=== PATIENT | male | born 1955 | race Caucasian/White ===

== ENCOUNTER 2023-04-10 06:46 | Day surgery (SDC) | payer MEDICARE, SELFPAY ==
[2023-03-31 13:21] VITALS: BMI 21.6
[2023-04-10] VITALS (15 sets, daily range): BP systolic 125–154; BP diastolic 78–94; BMI 21.6
[2023-04-10] MEDS: NORMOSOL-R 1000 IV (09:45)
[2023-04-10] MEDS: DILAUDID 0.5 MG IV ×3 (13:07→13:33)
[2023-04-10] MEDS: MORPHINE SULFATE 2 MG IV ×2 (13:58→14:15)
--- NOTE | 2023-04-10 14:07 | PTCARENOTE ---
Patient continues with pain to elbow 12/13 post 1.5 Dilaudid. He had stated his shoulder was tolerable now calling it a 11/13. Dr. Montague made aware since his respiratory status had become shallow and I did not feel comfortable given him more
Dilaudid. Dr. Montague ordered Morphine. Report given to on-coming nurse
== END 2023-04-10 16:04 | disposition home or self-care (01) ==
LOC: SDS 06:46
PROVIDERS: ATTENDING PHYSICIAN Orthopaedic Surgery Hand Surgery; FAMILY PHYSICIAN Family Medicine
DX: S43.432A Superior glenoid labrum lesion of left shoulder, initial encounter (principal); X58.XXXA Exposure to other specified factors, initial encounter; M77.02 Medial epicondylitis, left elbow; M25.812 Other specified joint disorders, left shoulder; M75.42 Impingement syndrome of left shoulder; M75.52 Bursitis of left shoulder
CPT/HCPCS: 29807; 24359; 88304; 36415; 93005

== ENCOUNTER 2023-04-17 20:17 | Inpatient (IN) | payer MEDICARE, SELFPAY ==
[2023-04-17 14:30] VITALS: BP 145/103
--- NOTE | 2023-04-17 15:00 | ED.GENMED ---
History of Present Illness
<Phyllis Negro PA-C - Last Filed: 04/17/23 18:45>
General
Chief Complaint: Abdominal Symptoms
Source: patient
Exam Limitations: none
Time Seen by Provider: 04/17/23 14:34
Nursing documentation reviewed up to this point in time: agreed with
Travel History
Have you had any contact with someone who has COVID-19?: No
Do you have any symptoms of coronavirus? Fever > 100 degrees, chills, cough, shortness of breath, sore throat, loss of taste or smell, muscle aches, or headache?: No
History of Present Illness
History of Present Illness:
Patient is a 67 year old male with hx PCKD, HTN, HLD, diverticulitis, pancreatitis, hepatitis C presenting for evaluation of severe abdominal pain. Symptoms started this morning and he reports a severe pain diffusely located throughout the abdomen
that is constant. Also endorsing chills and one episode of vomiting. Patient denies fever, chest pain, shortness of breath, diarrhea, constipation, or urinary symptoms. Patient states he has been having regular bowel movements. He is concerned this
is a flare of his diverticulitis.
Patient is a difficult historian and somewhat agitated upon initial interview.
Patient did have an orthopedic surgery on 04/10/[address] Yarbrough- repair of L medical epicondylitis and a wash out of L shoulder. He states incisions are healing. He has been taking Percocet at home as needed.
Patient has a history of diverticulitis and underwent a sigmoid colon resection back in 2008.
Patient states that he does not drink alcohol.
Past History
<Phyllis Negro PA-C - Last Filed: 04/17/23 18:45>
Past History
ED Past Medical History: HTN, Hypercholesterolemia and Other (Hep C, Polycystic kidney and Liver ds, chronic back pain, Diverticulitis, PUD, )
ED Past Surgical History: Bowel resection (for diverticulitis), Orthopedic and Other (Left herniorrhaphy and right)
Social History
Tobacco: Smoker
Alcohol: Occasional
Drug: None
Personal: Single
Living: alone
Employment: Disabled (Due to back problems)
Family History
Family History: Negative Early CAD
Phy Exam
<Phyllis Negro PA-C - Last Filed: 04/17/23 18:45>
Physical Exam
Physical Exam:
General: In moderate distress, and non-toxic
Vitals: Hypertensive, otherwise vital signs stable- afebrile
HEENT: Atraumatic, normocephalic; protecting airway
Neck: appears supple
CV: Regular rate and rhythm, no evidence of cyanosis
Resp: No evidence of respiratory distress
Abd: Diffuse moderate tenderness with guarding; no palpable masses
Extremities: No deformities, no evidence of cyanosis or edema
Neuro: alert and oriented, speech normal, no focal neurologic deficits
Psych: Somewhat agitated
Skin: Intact, no rashes; surgical sites on left elbow and left shoulder are clean, dry, intact without any redness, streaking or signs of infection
Course
<Phyllis Negro PA-C - Last Filed: 04/17/23 18:45>
Orders/Labs/Results
Orders:
Orders
04/17/23 15:35
0.9% Sodium Chloride 1000 ml [Nss] 1,000 ml IV BOLUS
Iohexol [Omnipaque] See Protocol PO NOW STA
Morphine Sulfate 2 mg IV NOW STA
Ondansetron Injectable [Zofran] 4 mg IV NOW STA
04/17/23 16:05
CBC/With Diff [Complete Blood Count/With Diff] Urgent
Comprehensive Metabolic Panel Urgent
Lipase Urgent
04/17/23 16:59
CT Abd/pel Without Iv Or Oral Urgent
Comment: renal insufficiency
Reason For Exam: diffuse abdominal pain
04/17/23 17:09
Morphine Sulfate 4 mg IV NOW STA
04/17/23 18:37
Piperacillin/Tazo 2.25 Gram [Zosyn] 2.25 grams in 50 ml IV NOW
Abnormal Lab Results
04/17/23
16:05
WBC 24.6 H 10^3/uL
(4.8-10.8)
RDW 15.4 H %
(11.5-14.5)
Abs Immat Gran (auto) 0.1 H 10^3/uL
(0-0.05)
Absolute Neuts (auto) 21.5 H 10^3/uL
(1.4-6.5)
Absolute Lymphs (auto) 1.0 L 10^3/uL
(1.2-3.4)
Absolute Monos (auto) 1.8 H 10^3/uL
(0.1-0.6)
Neutrophils % 87.8 H %
(42.2-75.2)
Lymphocytes % 4.1 L %
(20.5-51.1)
Carbon Dioxide 20 L mmol/L
(22-30)
BUN 41 H mg/dl
(9-20)
Creatinine 3.1 H mg/dL
(0.7-1.3)
Glucose 137 H mg/dl
(70-99)
04/17/23 16:05
04/17/23 16:05
Vital Signs
Initial and Last Documented VS:
Initial Vital Signs
Temp Pulse Resp BP Pulse Ox
98.6 F 96 16 145/103 98
04/17/23 14:30 04/17/23 14:30 04/17/23 14:30 04/17/23 14:30 04/17/23 14:30
Last Documented Vital Signs
Temp Pulse Resp BP Pulse Ox
98.6 F 84 16 145/103 97
04/17/23 14:30 04/17/23 17:23 04/17/23 14:30 04/17/23 14:30 04/17/23 17:22
<Bakari Danielle, DO - Last Filed: 04/17/23 19:37>
Orders/Labs/Results
Orders:
Orders
04/17/23 15:35
0.9% Sodium Chloride 1000 ml [Nss] 1,000 ml IV BOLUS
Iohexol [Omnipaque] See Protocol PO NOW STA
Morphine Sulfate 2 mg IV NOW STA
Ondansetron Injectable [Zofran] 4 mg IV NOW STA
04/17/23 16:05
CBC/With Diff [Complete Blood Count/With Diff] Urgent
Comprehensive Metabolic Panel Urgent
Lipase Urgent
04/17/23 16:59
CT Abd/pel Without Iv Or Oral Urgent
Comment: renal insufficiency
Reason For Exam: diffuse abdominal pain
04/17/23 17:09
Morphine Sulfate 4 mg IV NOW STA
04/17/23 18:37
Piperacillin/Tazo 2.25 Gram [Zosyn] 2.25 grams in 50 ml IV NOW
Abnormal Lab Results
04/17/23
16:05
WBC 24.6 H 10^3/uL
(4.8-10.8)
RDW 15.4 H %
(11.5-14.5)
Abs Immat Gran (auto) 0.1 H 10^3/uL
(0-0.05)
Absolute Neuts (auto) 21.5 H 10^3/uL
(1.4-6.5)
Absolute Lymphs (auto) 1.0 L 10^3/uL
(1.2-3.4)
Absolute Monos (auto) 1.8 H 10^3/uL
(0.1-0.6)
Neutrophils % 87.8 H %
(42.2-75.2)
Lymphocytes % 4.1 L %
(20.5-51.1)
Carbon Dioxide 20 L mmol/L
(22-30)
BUN 41 H mg/dl
(9-20)
Creatinine 3.1 H mg/dL
(0.7-1.3)
Glucose 137 H mg/dl
(70-99)
04/17/23 16:05
04/17/23 16:05
Vital Signs
Initial and Last Documented VS:
Initial Vital Signs
Temp Pulse Resp BP Pulse Ox
98.6 F 96 16 145/103 98
04/17/23 14:30 04/17/23 14:30 04/17/23 14:30 04/17/23 14:30 04/17/23 14:30
Last Documented Vital Signs
Temp Pulse Resp BP Pulse Ox
98.6 F 84 16 145/103 97
04/17/23 14:30 04/17/23 17:23 04/17/23 14:30 04/17/23 14:30 04/17/23 17:22
<Phyllis Negro PA-C - Last Filed: 04/17/23 18:45>
MDM/Problems Addressed
Differential Diagnosis Includes:
Diverticulitis, pancreatitis, bowel perforation, appendicitis, cholecystitis, colitis
MDM/Problems Addressed:
Patient is a 67-year-old male with history of diverticulitis, PCKD presenting for evaluation of severe abdominal pain starting this morning. Pain is located diffusely throughout the abdomen, with 1 associated episode of vomiting. He denies
diarrhea, constipation, nausea, urinary symptoms, fever. He recently had a surgical procedure done on left elbow and left arm about 1 week ago�he has had no complications and is taking Percocet as needed for pain. Patient denies alcohol use. He
does have a history of diverticulitis and had a sigmoid colon resection in 2008. Physical exam as document above. His vital signs are stable upon arrival, afebrile. He is somewhat agitated and in significant discomfort. He has moderate diffuse
abdominal tenderness with some guarding. His surgical sites are clean, dry, intact without any red streaking or signs of infection.
Given significant level of discomfort and history of diverticulitis�will get basic labs, lipase. Will check CT of abdomen. Will give IV morphine, Zofran, start IV fluids. Was planning to start IV Dilaudid�but patient states that 'he does not react
well'.
CBC with significant leukocytosis of 24.6, neutrophil predominant. No other clinically significant abnormalities. CMP shows significant renal insufficiency which appears to be about baseline per patient. Otherwise no clinically significant
abnormalities. Lipase normal. Given renal insufficiency will avoid IV contrast and CT. Will get CT without IV or oral contrast to expedite scan based on significant elevated WBC.
CT scan shows no acute findings or evidence of perforation�possible 3 mm stone at right UVJ. This is not consistent with location of patient's pain and do not suspect this is cause of symptoms.
Given ongoing pain, significant leukocytosis�will admit patient for IV antibiotics and monitoring. Starting Zosyn.
Chronic conditions affecting care:
PCKD, hypertension, hyperlipidemia, diverticulitis, hepatitis C, pancreatitis
<Phyllis Negro PA-C - Last Filed: 04/17/23 18:45>
*Radiology
Radiology exam reviewed: preliminary read by ED provider and radiology read reviewed
*Pulse Oximetry
Patient hypoxic: no
*Mortgage Loan Computation Clerk Interpretation
Rate: Mortgage Loan Computation Clerk- N/A
*Critical Care Note
Total Time (30-74mins, 75-104mins- exclusive of procedures): Not Applicable
ED Attending Note
<Phyllis Negro PA-C - Last Filed: 04/17/23 18:45>
-
Portions of this chart may have been created with voice recognition software.� Occasional wrong word or��sound alike� substitutions may have occurred due to the inherent limitations of voice recognition software.
<Bakari Danielle DO - Last Filed: 04/17/23 19:37>
ED Attending Note
Patient seen and examined by attending physician: Yes
I performed the substantive portion of visit, reviewed & personally made and approve the management plan that is documented in note by myself or ESPINOZA.: Yes
I performed a history and physical exam of patient and discussed management with resident, I reviewed resident's note and agree with documented findings and plan of care.: Yes
ED Attending Note:
I evaluated patient at bedside. The patient does appear somewhat uncomfortable upon arrival. Will check CT imaging. He does have mild to moderate tenderness on exam diffusely. CT imaging reviewed personally�liver and renal cyst noted. No
definite acute abnormality, however leukocytosis is noted. Ongoing pain. Will plan to keep patient in the hospital for possible abdominal infection as he does have significant white count elevation and ongoing pain. Notified hospitalist at 7:30
PM�Dr. Moreno.
Discharge Plan
Departure
Patient Disposition: Admit
Date of Disposition: 04/17/23
Time of Disposition: 19:35
Presentation/result/management discussed w/ accepting MD/DO: Hospitalist
Discharge Problem:
Leukocytosis, Abdominal pain
Prescriptions:
No Action
pantoprazole 40 MG tablet,delayed release (DR/EC)
40 mg PO DAILY
duloxetine 20 MG capsule,delayed release(DR/EC)
20 mg PO DAILY
fluticasone propion-salmeterol [Advair Diskus] 250-50 mcg/dose blister with device
1 inh INHALATION R BID
amlodipine 5 mg Tablet
10 mg PO DAILY
alprazolam 0.5 mg Tablet
0.5 mg PO DAILY
Patient Comments:
09/17/21 pt picked up 08/15/21 #90
oxycodone-acetaminophen [Endocet] 5-325 mg tablet
1 tab PO Q6H PRN (Reason: severe pain) 7 Days Qty: 30 0RF
Patient Comments:
04/17/2023: last filled 02/03/23, 120 tabs for 30 days from [facility]
Eliquis 2.5 mg Tablet
2.5 mg PO BID
atorvastatin 20 mg Tablet
20 mg PO DAILY
Referrals:
Patrick Fernandez MD [Family Provider] -
Interventions
Interventions:
*Risk Screen - Suicide Last Done: 04/17/23 17:22
*General Assessment Last Done: 04/17/23 15:15
*Neglect/Abuse Screening Last Done: 04/17/23 15:15
ED- Fall Risk Assessment Last Done: 04/17/23 15:15
*ED COVID-19 Vaccine History Last Done: 04/17/23 14:30
XS-Rdqlob-Qdiwaexapk Assessment Last Done: 04/17/23 15:16
[2023-04-17] MEDS: NSS 1000 IV ×2 (16:11→21:49)
[2023-04-17] MEDS: MORPHINE SULFATE 2 MG IV (16:12)
[2023-04-17] MEDS: ZOFRAN 4 MG IV (16:12)
[2023-04-17 16:23] LABS: % Basophils 0.3 % (0-2); % Immature Granulocytes 0.4 % (0-0.5); % Lymphocytes 4.1 % (20.5-51.1); % Monocytes 7.4 % (1.7-9.3); % Neutrophils 87.8 % (42.2-75.2); Absolute Basophils 0.1 10^3/uL (0-0.2); Absolute Immature Granulocytes 0.1 10^3/uL (0-0.05); Absolute Monocytes 1.8 10^3/uL (0.1-0.6); Absolute Neutrophils 21.5 10^3/uL (1.4-6.5); Hematocrit 45.5 % (39.0-52.0); Hemoglobin 15.7 g/dL (13.0-18.0); Mean Corp Hgb Conc. 34.5 g/dL (33.0-37.0); Mean Corpuscular Hgb 30.7 pg (27.0-31.0); Mean Platelet Volume 10.4 fL (7.4-10.4); Nucleated Red Blood Cells % 0 % (-); Platelet Count 336 10^3/uL (130-400); Red Blood Cell Count 5.11 10^6/uL (4.70-6.10); Red Cell Dist. Width 15.4 % (11.5-14.5); White Blood Cell Count 24.6 10^3/uL (4.8-10.8)
[2023-04-17 16:40] LABS: ALT (SGPT) 13 U/L (0-50); AST (SGOT) 17 U/L (17-59); Albumin 3.9 g/dl (3.5-5.0); Alkaline Phosphatase 94 U/L (38-126); Blood Urea Nitrogen 41 mg/dl (9-20); Calcium 9.3 mg/dl (8.4-10.2); Carbon Dioxide 20 mmol/L (22-30); Chloride 107 mmol/L (98-107); Glucose 137 mg/dl (70-99); Potassium 3.7 mmol/L (3.5-5.1); Sodium 140 mmol/L (135-145); Total Bilirubin 0.7 mg/dl (0.2-1.3); Total Protein 6.4 g/dl (6.3-8.2); eGFR 21.49
[2023-04-17 16:41] LABS: Lipase 58 U/L (23-300)
[2023-04-17] MEDS: MORPHINE SULFATE 4 MG IV (17:49)
[2023-04-17] MEDS: ZOSYN 50 IV ×2 (18:42→23:43)
--- NOTE | 2023-04-17 19:31 | HPS.HSE ---
Addendum entered and electronically signed by Kassandra Mayer DO 04/17/23 20:41:
The patient is seen and examined, reviewed with Shruthi, and I agree with her history and physical, assessment and plan of care as outlined below.
The patient is havening diffuse abdominal tenderness, which he says he gets periodically. He takes 3 Percocet daily typically. Vomiting x 1.
Hematuria
AF, BP 167/92
Abd soft, no peritoneal signs, voluntary guarding, decreased bowel sounds, diffusely tender
Ext n c/c/e
CV RRR, no m/r/g
EKG reviewed, QT not prolonged, NSR
CT a/p reviewed as per below -
Abd pain, no evidence for SBO nor perforation
PCKD with hepatic involvement noted- multiple cysts in liver (unclear of prior work-up, cannot perform IV contrast due to CKD 3b) 3 mm stone w hydronephrosis
-IV Zosyn, pain management prn, IVF (gentle), Uro consulted, Flomax, UA pending, anti-emetics, serial examination of abdomen with close monitoring , consider GI Cx tomorrow pending clinical course
Original Note:
Family Physician
-
Family Physician: Patrick Fernandez
Chief Complaint
-
right sided abdominal pain
History of Present Illness
67 year old with PMH for polycystic kidney disease, hypertension, hyperlipidemia, diverticulitis, pancreatitis, hepatitis C presented to us with severe right-sided abdominal pain since this afternoon. Denied radiating to his back. Stated some
chills. Denied fever. Patient denied any headache, dizziness, syncopal episode. Patient denied chest pain or short of breath. Patient denied dysuria hematuria.
CT with impression of PCKD with hepatic involvement again seen, evaluation, particularly of the kidneys markedly limited without intravenous contrast.
Suggestion of mild right renal collecting system dilatation. Following the course of the right ureter limited. Possible 3 mm calculus at the right ureterovesical junction with mild right hydroureteronephrosis.
Small hiatal hernia.
Coronary artery calcifications.
received Zosyn in ER. admitting for further management.
Medical History
Past Medical History
Past Medical History: Reports Other
Additional Past Medical History:
. Polycystic kidney disease.
2. Anxiety disorder.
3. Depression.
4. Hypertension.
5. Elevated cholesterol.
6. Liver disease.
Past Surgical History: Reports Other
Additional Past Surgical History:
sigmoid colon resection
Social History
Tobacco: Non-smoker
Alcohol: None
Drug: None
Family History
Family History: Not pertinent
Allergies / Home Medications
Allergies reflects when Allergies were last updated in [facility].
Home Medications with original date entered in [facility]
Allergy/Medication List:
Allergies
Allergy/AdvReac Type Severity Reaction Status Date / Time
gabapentin Allergy Hives Verified 04/17/23 14:32
lorazepam [From Ativan] Allergy 'gets Verified 04/17/23 14:32
depressed'
Home Medications
pantoprazole 40 mg tablet,delayed release 40 mg PO DAILY Gastrointestinal issue 09/15/08
duloxetine 20 mg capsule,delayed release 20 mg PO DAILY Mental Health/Anxiety 10/21/18
alprazolam 0.5 mg tablet 0.5 mg PO DAILY 09/17/21
amlodipine 5 mg tablet 10 mg PO DAILY Blood pressure 09/17/21
fluticasone 250 mcg-salmeterol 50 mcg/dose blistr powdr for inhalation (Advair Diskus) 1 inh inhalation R BID Lung/breathing issues 09/17/21
oxycodone-acetaminophen 5 mg-325 mg tablet (Endocet) 1 tab PO Q6H PRN severe pain 7 days #30 tabs 09/22/21
apixaban 2.5 mg tablet (Eliquis) 2.5 mg PO BID 04/07/23
atorvastatin 20 mg tablet 20 mg PO DAILY 04/07/23
Review of Systems
-
Constitutional: Reports No Symptoms
EENT: Reports No Symptoms
Respiratory: Reports No Symptoms
Cardiac: Reports No Symptoms
Abdomen/GI: Reports Abdominal Pain
: Reports No Symptoms
Musculoskeletal: Reports No Symptoms
Skin: Reports No Symptoms
Neurological: Reports No Symptoms
Endocrine: Reports No Symptoms
Hematologic/Lymphatic: Reports No Symptoms
Psych: Reports No Symptoms
Physical Exam
Vital Signs
Vital Signs
Temp Pulse Resp BP Pulse Ox
98.6 F 84 16 145/103 97
04/17/23 14:30 04/17/23 17:23 04/17/23 14:30 04/17/23 14:30 04/17/23 17:22
Physical Exam
General: Well Developed, Well Nourished and No Apparent Distress
HEENT: NormoCephalic, Moist mucous membranes and Atraumatic
Respiratory: Clear
Cardiac: S1/S2 and Regular Rhythm; No Murmur or Rub
GI: Soft, Non Tender, Non Distended and Normal Bowel Sounds; No Organomegaly
Rectal: Deferred by Provider
Musculoskeletal: No Clubbing, No Cyanosis and No Edema
Skin: No Rash
Neuro: AO x 3 and Nonfocal/grossly intact
Psych: Calm
Laboratory Results
-
04/17/23 16:05
04/17/23 16:05
Laboratory Results
Total Bilirubin 0.7 mg/dl (0.2-1.3) 04/17/23 16:05
AST 17 U/L (17-59) 04/17/23 16:05
ALT 13 U/L (0-50) 04/17/23 16:05
Alkaline Phosphatase 94 U/L (38-126) 04/17/23 16:05
Lipase 58 U/L (23-300) 04/17/23 16:05
Data Reviewed
-
CT Scan: Report Reviewed by me
Lab Data: Labs Reviewed by me
Impression/Plan
-
# Diffuse abdominal pain unclear cause
-hxt of diverticulitis.
-WBC 24.6
-IV Zosyn
-clear liquid diet
-Advance diet as tolerated
-Dilaudid as needed for pain
-Zofran as needed for nausea vomiting
-CT abdomen pelvis with impression of PCKD with hepatic involvement again seen, evaluation, particularly of the kidneys markedly limited without intravenous contrast.Suggestion of mild right renal collecting system dilatation. Following the course
of the right ureter limited. Possible 3 mm calculus at the right ureterovesical junction with mild right hydroureteronephrosis.Small hiatal hernia.Coronary artery calcifications.
-consider GI consult with continued abdominal pain
#3mm calculus at the right ureterovesical junction with mild rt hydronephrosis
#hematuria
-obtain UA
-strain urine
-urology consulted
# Chronic kidney disease stage IIIb
-creatinine 3.1
-Continue to monitor
#essential hypertension
-Norvasc continued
#hxt of atrial fib
-unknown type
-hold eliquis due to hematuria
-obtain EKG
#anxiety
-Xanax continued
-duloxetine continued
#Hyperlipidemia
-statin continued
Diverticulitis s/p partial sigmoidectomy in 2008
History of hepatitis C- treated
Bilateral inguinal hernia repairs
GERD
Underweight
DVT ppx: scd
Code: Full
[2023-04-17 19:35] VITALS: BP 149/99
[2023-04-17 20:00] VITALS: BP 167/92
[2023-04-17 20:18] LABS: Urine Albumin 2+ (Neg - Trace); Urine Bilirubin Negative (Negative); Urine Character Slightly Cloudy (Clear); Urine Color Red; Urine Glucose Negative (Negative); Urine Ketone Negative (Negative); Urine Leukocyte Trace (Negative); Urine Nitrite Negative (Negative); Urine Occult Blood 4+ (Negative); Urine Urobilinogen Negative (Neg - 1+)
[2023-04-17 20:24] LABS: Urine Red Blood Cell >100 /HPF (0-2); Urine Squamous Cell 0-2 /LPF (Few); Urine White Cell None Seen /HPF (0-5)
[2023-04-17 21:05] VITALS: BP 135/84; BMI 20.3
[2023-04-17] MEDS: DILAUDID 0.5 MG IV (21:47)
[2023-04-17] MEDS: ADVAIR HFA 115/21 MCG INHALER INH (23:04)
[2023-04-17 23:20] VITALS: BP 136/83
[2023-04-17] MEDS: DILAUDID 0.25 MG IV (23:40)
[2023-04-18] MEDS: DILAUDID 0.5 MG IV ×8 (01:58→23:40)
[2023-04-18 02:08] VITALS: BP 127/85
--- NOTE | 2023-04-18 04:22 | PTCARENOTE ---
Pt stated that the Percocet he took at home made him nauseous and dry heave. Pt given prn dilaudid at 2146. Pt still c/o severe pain at 2329. BAKARI Mullen notified. PRN Percocet d/c'd. Dilaudid 0.5 mg Iv changed from Q4H to Q3H and Dilaudid 0.25
mg IV added for moderate pain. Will continue plan of care.
[2023-04-18 06:00] VITALS: BMI 20.3
[2023-04-18] MEDS: ZOSYN 50 IV ×4 (06:05→23:40)
[2023-04-18 07:00] VITALS: BP 110/77
[2023-04-18 07:05] LABS: Hemoglobin 13.8 g/dL (13.0-18.0); Mean Corp Hgb Conc. 34.5 g/dL (33.0-37.0); Mean Corpuscular Hgb 30.7 pg (27.0-31.0); Mean Corpuscular Volume 89.1 fL (80.0-94.0); Mean Platelet Volume 10.3 fL (7.4-10.4); Platelet Count 304 10^3/uL (130-400); Red Blood Cell Count 4.49 10^6/uL (4.70-6.10); Red Cell Dist. Width 15.4 % (11.5-14.5)
[2023-04-18] MEDS: ADVAIR HFA 115/21 MCG INHALER 2 PUFF INH ×2 (07:16→19:28)
[2023-04-18 07:33] LABS: Blood Urea Nitrogen 40 mg/dl (9-20); Calcium 8.7 mg/dl (8.4-10.2); Carbon Dioxide 21 mmol/L (22-30); Chloride 106 mmol/L (98-107); Estimated Creatinine Clearance 20 ml/min; Glucose 96 mg/dl (70-99); Sodium 136 mmol/L (135-145); eGFR 22.35
[2023-04-18] MEDS: FLOMAX 0.400000000000000022 MG PO (07:54)
[2023-04-18] MEDS: CYMBALTA DELAYED RELEASE 20 MG PO (07:54)
[2023-04-18] MEDS: XANAX 0.5 MG PO (07:55)
[2023-04-18] MEDS: LIPITOR 20 MG PO (07:55)
[2023-04-18] MEDS: PROTONIX 40 MG PO (07:55)
[2023-04-18] MEDS: NORVASC 10 MG PO (07:55)
--- NOTE | 2023-04-18 08:30 | W.PN.UPDATE ---
Addendum entered and electronically signed by Michele Coto MD 04/18/23 13:39:
Diffuse abdominal pain requiring IV narcotics - not particularly localized.
KUB 04/18 => no obvious distal right ureteral or bladder stone/calcification noted.
Given baseline Cr w/o new voiding symptoms or localized right renal colic, will continue MET.
No indication for surgical intervention planned.
D/w patient this afternoon.
Original Note:
Update Note
Progress Note Update
67M with h/o PCKD (liver/kidney) and CKD 3b (followed by Nephrology) presents to ED w/ diffuse abdominal pain and hematuria.
Voiding w/o clots.
WBC: 24.5 => 15
Cr: 3.1 => 3.0 (baseline)
UA: >100 RBCs
CTAP w/o IV contrast: bilateral polycystic kidneys, mild right hydroureteronephrosis, 3 mm stone at right UVJ (intravesical portion)
A/P:
Obstructing right UVJ stone (w/o DENIZ or high-grade obstructive uropathy)
Hematuria (suspected secondary to stone and Eliquis anticoagulation)
- Given small stone size and markedly distal location, recommend medical expulsive therapy over next 24 hrs
- KUB this AM
- Continue tamsulosin 0.4 mg daily to facilitate passage
- OK to resume diet, NPO@MN
- Hold Eliquis until stone passed or surgical intervention (if indicated)
D/w Hospitalist.
D/w patient's partner (Camila).
--- NOTE | 2023-04-18 10:42 | W.PN.HOSP.TC ---
Addendum entered and electronically signed by Keyshawn Marlow MD 04/18/23 18:05:
Patient seen and examined
Discussed with resident
Discussed with neurology.
Impression/plan
67 years old with PCKD, chronic kidney disease presents with right upper quadrant and flank pain
Hematuria.
Leukocytosis
CT scan on admission consistent with right UVJ colliculi 3 mm
Follow-up KUB with absence of stone.
Monitor closely.
Empiric antibiotic coverage trending WBC and pending urine cultures.
Continue Flomax
Follow renal function.
Original Note:
Today's Communication/Plan
-
WBC count trending down
Resume normal diet
Continue IV Zosyn
Pain management as needed
Continue Flomax
Antiemetics
Close monitoring with serial abdominal examinations
Assessment / Plan
Assessment / Plan
-
IMPRESSION:
Acute abdominal pain
Hematuria
Conditions prior to admission:
CKD stage IV
PCKD
COPD
Essential hypertension
Epicondyle surgery
Chronic pain syndrome with opiate dependence
Hypercholesterolemia
Diverticulitis s/p bowel resection
Small hiatal hernia
Coronary artery calcifications
PLAN:
Presentation with acute abdominal pain, right hydroureteronephrosis and hematuria
-Diffusely tender with severe right upper quadrant pain on palpation, decreased abdominal sounds.
-WBC trending down 24.6>> 15.0
-CTAP w/o IV contrast: bilateral polycystic kidneys, mild right hydroureteronephrosis, 3 mm stone at right UVJ (intravesical portion)
-Abdominal x-ray: The 3 mm calculus at the right ureterovesical junction on the previous CT abdomen/pelvis is not clearly seen on this exam; patient most likely passed UVJ stone.
Multiple small bilateral renal calcifications. Nonobstructive bowel gas pattern. No intraperitoneal free air.
-No evidence of DENIZ,
-Continue IV Zosyn pending urine culture; no evidence of SBO; patient remains afebrile
-Continue Flomax for now
-Pain management as needed
-Continue antiemetics as needed
-Urology inputs appreciated
-Serial abdominal examinations
-Hold Eliquis
-Resume normal diet
Chronic kidney disease stage IIIb
-creatinine 3.1>3.0
-Continue to monitor
Essential hypertension
-Continue Norvasc
History of atrial fib
-unknown type
-hold eliquis due to hematuria
-EKG 04/17/2023 with normal sinus rhythm
Anxiety
-Continue Xanax
-Continue duloxetine
Hyperlipidemia
-Continue statin
Diverticulitis s/p partial sigmoidectomy in 2008
History of hepatitis C- treated
Bilateral inguinal hernia repairs
GERD
Underweight
Anticipated Discharge: 24 - 48 hours
Subjective/Interval History
-
Date of Service: April 18, 2023
Patient is a 67-year-old male with history of diverticulitis with sigmoidectomy, PCKD with CKD 3B, hypertension, hepatitis C who presented to the ED with severe abdominal pain. Patient reports a diffuse, constant, generalized abdominal pain that
started in the a.m. yesterday. He also reported an episode of vomiting yesterday,but had no diarrhea, or urinary symptoms. Today patient reports episodic abdominal pain predominantly in the right upper quadrant of the abdomen. He rated pain 8/10,
and stated that he has been getting some pain medications which has helped with the pain. Patient also endorsed regular bowel movements, with Hart stool chart type IV. He denies chest pain, shortness of breath, constipation, and fever. Patient
had orthopedic surgery on 04/10/[address] Yarbrough and has been taking 3 Percocet daily at home as needed. He does not take any other pain medication at home.
Objective Data
-
Labs:
Laboratory Results
04/18/23
06:42
WBC 15.0 H
Hgb 13.8
Hct 40.0
Plt Count 304
Sodium 136
Potassium 4.0
Chloride 106
Carbon Dioxide 21 L
BUN 40 H
Creatinine 3.0 H
Glucose 96
Calcium 8.7
Vital Signs:
Vital Signs
Temp Pulse Resp BP Pulse Ox
99.0 F 73 14 110/77 93
04/18/23 07:00 04/18/23 07:55 04/18/23 07:21 04/18/23 07:55 04/18/23 07:21
I&O
04/17/23 04/18/23 04/19/23
06:59 06:59 06:59
Intake Total 1030 / 1030
Output Total 1700 / 1700
Balance -670 / -670
Review of Systems
-
History Source: Patient
All other systems: Not reviewed unless documented
Constitutional: Reports No Symptoms
EENT: Reports No Symptoms Reported
Respiratory: Reports No Symptoms
Cardiac: Reports No Symptoms
Abdomen/GI: Reports Abdominal Pain; Denies Nausea, Vomiting, Diarrhea, Constipated, Bloody Stools or Black Stools
Genitourinary: Reports No Symptoms; Denies Dysuria
Musculoskeletal: Reports No Symptoms
Skin: Reports No Symptoms
Neuro: Reports No Symptoms
Physical Exam
-
General: Well Developed, No Apparent Distress and Pain (With slight palpation of the abdomen predominantly in the RUQ)
HEENT: Normocephalic, Atraumatic and Moist Mucous Membranes
Respiratory: Clear to Auscultation
Cardiac: Regular Rhythm and S1/S2; Negative Murmur, Rub or Gallop
GI: Soft, Nontender, Nondistended and Normal Bowel Sounds; Negative Organomegaly
Rectal: Deferred by Provider
Musculoskeletal: No Clubbing, No Cyanosis and No Edema
Skin: Warm and Dry; Negative Rash
Neuro: Awake, Alert, Oriented, AO x 3 and Nonfocal/Grossly Intact
Psych: Calm and Intact Judgement/Insight
Data Reviewed
-
Diagnostic Radiology: Image personally visualized and interpreted, Report Reviewed by me and Discussed with Physician
CT Scan: Image personally visualized and interpreted, Report Reviewed by me and Discussed with Physician
Medical Tests (Nuc Med, Echo etc): Image personally visualized and interpreted, Report Reviewed by me and Discussed with Physician
Labs: Labs Reviewed by me and Discussed with Physician
Old Records: Reviewed
[2023-04-18] MEDS: NSS 1000 IV (10:57)
[2023-04-18 11:00] VITALS: BP 136/62
[2023-04-18 11:16] VITALS: BMI 20.3
--- NOTE | 2023-04-18 13:19 | CM ---
Reviewed chart, met with patient to obtain information for assessment. Patient stated that he lives in a single home with his . There are five steps to enter.
Patient described himself as independent with ADLs, personal care, bathing, dressing and toileting. 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 Patient drives and can transport himself to all of his appointments.
Patient has a w/c, cane and walker however he does not use.
Patient has a prescription plan and uses [facility] for all of his medications in [place].
His PCP is Dr. Fernandez.
Patient feels that physically he is at baseline and will be able to return home when stable for discharge.
Plan: Case management will continue to follow and assist with discharge planning. Home when stable.
[2023-04-18 15:00] VITALS: BP 134/81
[2023-04-18 19:00] VITALS: BP 132/82
[2023-04-18 23:00] VITALS: BP 132/77
[2023-04-19] MEDS: NSS 1000 IV (02:41)
[2023-04-19] MEDS: DILAUDID 0.5 MG IV ×6 (02:47→19:45)
[2023-04-19 03:00] VITALS: BP 140/79
[2023-04-19] MEDS: ZOSYN 50 IV ×3 (05:42→17:06)
[2023-04-19 06:00] VITALS: BMI 20.6
[2023-04-19 07:00] VITALS: BP 141/71
[2023-04-19 07:04] LABS: Hematocrit 40.1 % (39.0-52.0); Hemoglobin 13.7 g/dL (13.0-18.0); Mean Corp Hgb Conc. 34.2 g/dL (33.0-37.0); Mean Corpuscular Hgb 30.9 pg (27.0-31.0); Mean Corpuscular Volume 90.3 fL (80.0-94.0); Mean Platelet Volume 10.2 fL (7.4-10.4); Platelet Count 292 10^3/uL (130-400); Red Blood Cell Count 4.44 10^6/uL (4.70-6.10); Red Cell Dist. Width 15.3 % (11.5-14.5); White Blood Cell Count 13.9 10^3/uL (4.8-10.8)
[2023-04-19] MEDS: ADVAIR HFA 115/21 MCG INHALER 2 PUFF INH ×2 (07:19→19:29)
[2023-04-19 08:01] LABS: Blood Urea Nitrogen 35 mg/dl (9-20); Calcium 8.7 mg/dl (8.4-10.2); Carbon Dioxide 20 mmol/L (22-30); Chloride 109 mmol/L (98-107); Estimated Creatinine Clearance 21 ml/min; Glucose 87 mg/dl (70-99); Potassium 3.7 mmol/L (3.5-5.1); Sodium 137 mmol/L (135-145); eGFR 22.35
[2023-04-19] MEDS: LIPITOR 20 MG PO (08:53)
[2023-04-19] MEDS: FLOMAX 0.400000000000000022 MG PO (08:53)
[2023-04-19] MEDS: CYMBALTA DELAYED RELEASE 20 MG PO (08:53)
[2023-04-19] MEDS: XANAX 0.5 MG PO (08:53)
[2023-04-19] MEDS: PROTONIX 40 MG PO (08:53)
[2023-04-19] MEDS: NORVASC 10 MG PO (08:53)
[2023-04-19 11:00] VITALS: BP 113/73
--- NOTE | 2023-04-19 14:36 | W.PN.HOSP.TC ---
Addendum entered and electronically signed by Keyshawn Marlow MD 04/19/23 17:32:
Patient seen and examined
Discussed with resident
Discussed with urology
Remains with persistent but currently mostly epigastric right upper quadrant pain.
Exam with very mild diffuse abdominal tenderness and right greater than left flank tenderness.
Abdominal x-ray from 04/18 with no evidence of renal stone.
For completeness we will recheck CT to confirm stone passage. If confirmed likely pain related to PCKD and chronic pain. Analgesic regimen needed to be adjusted then.
Original Note:
Today's Communication/Plan
-
Empiric antibiotic coverage trending WBC and pending urine cultures.
Continue Flomax
Follow renal function.
Repeat CT scan of abdomen given new onset abdominal/flank pain.
Optimize home pain medication with plans for discharge.
Assessment / Plan
Assessment / Plan
-
IMPRESSION:
New onset back/flank pain
Acute abdominal pain
Hematuria
Conditions prior to admission:
CKD stage IV
PCKD
COPD
Essential hypertension
Epicondyle surgery
Chronic pain syndrome with opiate dependence
Hypercholesterolemia
Diverticulitis s/p bowel resection
Small hiatal hernia
Coronary artery calcifications
PLAN:
New onset back/flank pain
-Repeat CT scan of abdomen with oral contrast in a.m. to rule out presence of renal calculi.
-Optimize home pain medication for discharge.
Presentation with with PCKD, chronic kidney disease presents with right upper quadrant and flank pain.
-Significantly improved, normal abdominal sounds.
-WBC trending down 24.6>> 13.9
-CTAP w/o IV contrast yesterday consistent with right UVJ 3 mm stone subsequently absent on follow-up KUB.
-No evidence of DENIZ,
-Continue IV Zosyn pending urine culture; no evidence of SBO; patient remains afebrile.
-Continue Flomax for now.
-Pain management every 3 hours.
-Continue antiemetics as needed.
-Urology following.
-Serial abdominal examinations.
-Hold Eliquis 2/2 hematuria
-Patient tolerating normal diet.
Chronic kidney disease stage IIIb
-creatinine 3.1>3.0.
-Monitor closely.
Essential hypertension
-Continue Norvasc
History of atrial fib
-Unknown type
-Hold eliquis due to hematuria
-EKG 04/17/2023 with normal sinus rhythm
Anxiety
-Continue Xanax
-Continue duloxetine
Hyperlipidemia
-Continue statin
Diverticulitis s/p partial sigmoidectomy in 2008
History of hepatitis C- treated
Bilateral inguinal hernia repairs
GERD
Underweight
Anticipated Discharge: 24 - 48 hours
Subjective/Interval History
-
Date of Service: April 19, 2023
Patient complains of new onset back pain rated 9/10.
Bilateral flank pain on physical exam.
Will get repeat CT scan to rule out renal calculi.
Objective Data
-
Labs:
Laboratory Results
04/19/23
06:50
WBC 13.9 H
Hgb 13.7
Hct 40.1
Plt Count 292
Sodium 137
Potassium 3.7
Chloride 109 H
Carbon Dioxide 20 L
BUN 35 H
Creatinine 3.0 H
Glucose 87
Calcium 8.7
Vital Signs:
Vital Signs
Temp Pulse Resp BP Pulse Ox
99.3 F 82 16 113/73 96
04/19/23 11:00 04/19/23 11:00 04/19/23 11:00 04/19/23 11:00 04/19/23 11:00
I&O
04/18/23 04/19/23 04/20/23
06:59 06:59 06:59
Intake Total 1030 / 1030 2904 / 2904
Output Total 1700 / 1700 1750 / 1750
Balance -670 / -670 1154 / 1154
Review of Systems
-
History Source: Patient
All other systems: Not reviewed unless documented
Constitutional: Reports No Symptoms
EENT: Reports No Symptoms Reported
Respiratory: Reports No Symptoms
Cardiac: Reports No Symptoms
Abdomen/GI: Reports Abdominal Pain; Denies Nausea, Vomiting, Diarrhea, Constipated, Bloody Stools or Black Stools
Genitourinary: Reports No Symptoms; Denies Dysuria
Skin: Reports No Symptoms
Neuro: Reports No Symptoms
Physical Exam
-
General: Well Developed, No Apparent Distress and Pain (With slight palpation of the abdomen predominantly in the RUQ)
HEENT: Normocephalic, Atraumatic and Moist Mucous Membranes
Respiratory: Clear to Auscultation
Cardiac: Regular Rhythm and S1/S2; Negative Murmur, Rub or Gallop
GI: Soft, Nontender, Nondistended and Normal Bowel Sounds; Negative Organomegaly
Rectal: Deferred by Provider
Musculoskeletal: No Clubbing, No Cyanosis and No Edema
Skin: Warm and Dry; Negative Rash
Neuro: Awake, Alert, Oriented, AO x 3 and Nonfocal/Grossly Intact
Psych: Calm and Intact Judgement/Insight
Data Reviewed
-
Diagnostic Radiology: Image personally visualized and interpreted, Report Reviewed by me and Discussed with Physician
CT Scan: Image personally visualized and interpreted, Report Reviewed by me and Discussed with Physician
Medical Tests (Nuc Med, Echo etc): Image personally visualized and interpreted, Report Reviewed by me and Discussed with Physician
Labs: Labs Reviewed by me and Discussed with Physician
Old Records: Reviewed
[2023-04-19 15:00] VITALS: BP 110/58
[2023-04-19 19:00] VITALS: BP 145/79
--- NOTE | 2023-04-19 23:30 | PTCARENOTE ---
Pt continues to be difficult and verbally inappropriate at this time. At start of shift 04/19/23 RN went into patient room to assess and give meds. Pt appeared very agitated and unhappy. Pt then proceeded to yell at RN about how unhappy he is with
his care from the Dr.'s. Pt demanded he speak to a Dr. at which point RN let pt know the Dr's will not be in until the AM. Pt asked if he is going for a test in AM at which point RN said she would check and find out for him. Pt also asked for pain
meds for pain 12/13, RN came back with IV dilauded 0.5 mg and administered to pt. Post pain meds given pt was agreeable to speak to Drbeverly in the AM about his plan of care and laid down to sleep. Around 2300 another RN who was a tech on floor that
shift went in for 2300 vitals which patient refused and told RN to 'get the fuck out of my room.' At 0000 pt's RN went in to hang IV antibiotics and patient right away refused and aggressively told RN 'I don't want anything'. RN left patient room
per patient request.
[2023-04-20] MEDS: ZOSYN IV (00:13)
--- NOTE | 2023-04-20 04:39 | W.PN.UPDATE ---
Update Note
Progress Note Update
RN notifed ALTERATIONS WORKROOM CLERK, patient wants to speak to someone regarding the care he has received. Upon arrival to floor, RN, diesel powerplant supervisor at bedside. Patient adamant he is leaving and that he won't sign the AMA paper and is leaving against medical advise. Attempt
made by this ALTERATIONS WORKROOM CLERK. Patient refused to talk or address the matter. Patient is escorted out by security guards.
== END 2023-04-20 05:00 | disposition home or self-care (01) | DRG 694 ==
LOC: 3 WEST ACU 20:17
PROVIDERS: Physician Assistant; Registered Nurse; ADMITTING PHYSICIAN Internal Medicine; ATTENDING PHYSICIAN Internal Medicine; EMERGENCY PHYSICIAN Emergency Medicine; FAMILY PHYSICIAN Family Medicine
DX: N13.0 Hydronephrosis with ureteropelvic junction obstruction (principal); Q61.3 Polycystic kidney, unspecified; K57.92 Diverticulitis of intestine, part unspecified, without perforation or abscess without bleeding; F11.20 Opioid dependence, uncomplicated; N20.1 Calculus of ureter; N20.0 Calculus of kidney; N13.30 Unspecified hydronephrosis; N18.4 Chronic kidney disease, stage 4 (severe); K44.9 Diaphragmatic hernia without obstruction or gangrene; I25.10 Atherosclerotic heart disease of native coronary artery without angina pectoris; I12.9 Hypertensive chronic kidney disease with stage 1 through stage 4 chronic kidney disease, or unspecified chronic kidney disease; F41.9 Anxiety disorder, unspecified; K21.9 Gastro-esophageal reflux disease without esophagitis; R63.6 Underweight; J44.9 Chronic obstructive pulmonary disease, unspecified; G89.4 Chronic pain syndrome; E78.00 Pure hypercholesterolemia, unspecified
CPT/HCPCS: 36430; 74018; 74176; 80048; 80053; 81003; 81015; 83690; 85025; 85027; 87070; 93005; 94640; 96374; 99285

== ENCOUNTER 2024-01-11 09:59 | Emergency (ER) | payer MEDICARE, SELFPAY ==
[2024-01-11 10:01] VITALS: BP 220/175
[2024-01-11 10:25] VITALS: BP 133/91
--- NOTE | 2024-01-11 10:42 | ED.GENMED ---
History of Present Illness
General
Chief Complaint: Fall
Source: patient
Time Seen by Provider: 01/11/24 10:15
History of Present Illness
History of Present Illness:
68-year-old male presents to the emergency room complaining of right buttock pain. Patient states he fell backwards while at the supermarket couple days ago. He was reaching for something on the shelf and when he stepped back from the item he lost
his balance and fell backwards. He landed on his buttocks. Patient states he had a 'Stanley Edwards' wallet in his pocket and when he landed on it he had significant pain. Patient is able to ambulate though with some discomfort. No other
injuries.
Past History
Past History
ED Past Medical History: HTN, Hypercholesterolemia and Other (Hep C, Polycystic kidney and Liver ds, chronic back pain, Diverticulitis, PUD, )
ED Past Surgical History: Bowel resection (for diverticulitis), Orthopedic and Other (Left herniorrhaphy and right)
Social History
Tobacco: Smoker
Alcohol: Occasional
Drug: None
Personal: Single
Living: alone
Employment: Disabled (Due to back problems)
Family History
Family History: Negative Early CAD
Phy Exam
Physical Exam
Physical Exam:
General: Awake, Alert, Oriented X3. No acute distress.
Vitals: unremarkable
Head: Atraumatic
Eyes: Pupils equal, EOMI
Throat: Airway intact, no exudates
Neck: Trachea midline
Lungs: Clear and equal b/l
Heart: Regular rate, no murmurs
Abd: Soft, Nontender, No pulsatile mass
Back: Tenderness lumbar spine. Positive right buttock tenderness to palpation
Neuro: Nonfocal
Skin: Warm, dry, no rash
Extremities: pulses equal b/l, no edema, range of motion of the lower extremities intact without discomfort
Course
Orders/Labs/Results
Orders:
Orders
01/11/24 10:41
Pelvis, 1 or 2 Views CR [CR Pelvis - 1 Or 2 Views ] Urgent
Comment:
Reason For Exam: r ischial pain s/p fall
Vital Signs
Initial and Last Documented VS:
Initial Vital Signs
Temp Pulse Resp BP Pulse Ox
98.2 F 87 18 220/175 98
01/11/24 10:01 01/11/24 10:01 01/11/24 10:01 01/11/24 10:01 01/11/24 10:01
Last Documented Vital Signs
Temp Pulse Resp BP Pulse Ox
98.2 F 67 18 137/67 99
01/11/24 10:01 01/11/24 11:43 01/11/24 11:43 01/11/24 11:43 01/11/24 11:43
MDM/Problems Addressed
Differential Diagnosis Includes:
pelvic fx, buttock contusion
MDM/Problems Addressed:
Patient has no fracture on x-ray. Patient stable for discharge home
*Radiology
Radiology exam reviewed: preliminary read by ED provider (no fx)
*Pulse Oximetry
Patient hypoxic: no
*Critical Care Note
Total Time (30-74mins, 75-104mins- exclusive of procedures): Not Applicable
ED Attending Note
-
Portions of this chart may have been created with voice recognition software.� Occasional wrong word or��sound alike� substitutions may have occurred due to the inherent limitations of voice recognition software.
Discharge Plan
Departure
Patient Disposition: Home (Routine Discharge)
Date of Disposition: 01/11/24
Time of Disposition: 11:12
Patient with high blood pressure during this ER visit?: No
Condition: Good
Discharge Problem:
Contusion of buttock
Instructions: Contusion (DC)
Prescriptions:
No Action
pantoprazole 40 MG tablet,delayed release (DR/EC)
40 mg PO DAILY
duloxetine 20 MG capsule,delayed release(DR/EC)
20 mg PO DAILY
fluticasone propion-salmeterol [Advair Diskus] 250-50 mcg/dose blister with device
1 inh INHALATION R BID
amlodipine 5 mg Tablet
10 mg PO DAILY
alprazolam 0.5 mg Tablet
0.5 mg PO DAILY
Patient Comments:
09/17/21 pt picked up 08/15/21 #90
oxycodone-acetaminophen [Endocet] 5-325 mg tablet
1 tab PO Q6H PRN (Reason: severe pain) 7 Days Qty: 30 0RF
Patient Comments:
04/17/2023: last filled 02/03/23, 120 tabs for 30 days from [facility]
Eliquis 2.5 mg Tablet
2.5 mg PO BID
atorvastatin 20 mg Tablet
20 mg PO DAILY
Referrals:
Patrick Fernandez MD [Family Provider] -
Interventions
Interventions:
*Risk Screen - Suicide Last Done: 01/11/24 10:01
*General Assessment Last Done: 01/11/24 10:01
*Neglect/Abuse Screening Last Done: 01/11/24 10:01
ED- Fall Risk Assessment Last Done: 01/11/24 11:43
*ED COVID-19 Vaccine History Last Done: 01/11/24 10:01
*Nursing Disposition Last Done: 01/11/24 11:43
ED-Musculoskeletal Assessment Last Done: 01/11/24 11:41
ED- Neurological Assessment Last Done: 01/11/24 11:41
ED-Skin Assessment Last Done: 01/11/24 11:41
Discharge Date and Time
Discharge Date/Time: 01/11/24 11:44
Print Language: LAO
[2024-01-11 11:43] VITALS: BP 137/67
== END 2024-01-11 11:44 | disposition home or self-care (01) ==
LOC: EMR 09:59
PROVIDERS: EMERGENCY PHYSICIAN Emergency Medicine; FAMILY PHYSICIAN Family Medicine
DX: S30.0XXA Contusion of lower back and pelvis, initial encounter (principal); W01.0XXA Fall on same level from slipping, tripping and stumbling without subsequent striking against object, initial encounter; I10 Essential (primary) hypertension; E78.00 Pure hypercholesterolemia, unspecified; F17.200 Nicotine dependence, unspecified, uncomplicated; Z86.19 Personal history of other infectious and parasitic diseases; Z87.11 Personal history of peptic ulcer disease
CPT/HCPCS: 99283; 72170

== ENCOUNTER 2024-03-20 15:19 | Inpatient (IN) | payer MEDICARE, SELFPAY ==
[2024-03-20] VITALS (11 sets, daily range): BP systolic 154–187; BP diastolic 78–99; BMI 20.6
--- NOTE | 2024-03-20 10:38 | ED.GENMED ---
History of Present Illness
General
Chief Complaint: Abdominal Pain
Source: patient
Exam Limitations: none
Time Seen by Provider: 03/20/24 10:28
History of Present Illness
History of Present Illness:
68-year-old male complaining of abdominal pain. Right-sided. Points to swelling of this area. Stated started yesterday. Associated with nausea and vomiting. No back or flank pain. No fever. Bowel movements are normal. No history of same.
Pain is severe in nature.
Past History
Past History
ED Past Medical History: HTN, Hypercholesterolemia and Other (Hep C, Polycystic kidney and Liver ds, chronic back pain, Diverticulitis, PUD, )
ED Past Surgical History: Bowel resection (for diverticulitis), Orthopedic and Other (Left herniorrhaphy and right)
Social History
Tobacco: Smoker
Alcohol: Occasional
Drug: None
Personal: Single
Living: alone
Employment: Disabled (Due to back problems)
Family History
Family History: Negative Early CAD
Review of Systems
Review of Systems
All Other Systems: Not applicable
Constitutional: Denies fever or chills
Respiratory: Reports no symptoms
Cardiac: Reports no symptoms
Phy Exam
Physical Exam
Physical Exam:
GENERAL: Alert and oriented. Nontoxic but appears uncomfortable
EYE: Orbits normal.
NECK: Supple
CARDIAC: Regular rate and rhythm without any obvious murmurs.
LUNGS: Clear breath sounds,normal
ABDOMEN: Decreased bowel sounds. No distention however swelling to the right rectus muscle. Tenderness over this area. Approximately 20 cm x 10 cm wide. No warmth or erythema. Superficially there is a keratotic area. No referred pain rebound
or guarding
NEUROLOGICAL: Alert and oriented , grossly non-focal
SKIN: Warm and dry, no rash or lesion, no discoloration, skin intact.
MUSCULOSKELETAL: No edema,no deformity.Good color
PSYCH: Normal and appropriate interaction.
Course
Orders/Labs/Results
Orders:
Orders
03/20/24 10:35
CT Abd/pel Without Iv Or Oral Urgent
Comment:
Reason For Exam: Right-sided abdominal pain. Abdominal wall swelli
Cardiac Monitoring- Treatment ONCE
IV Insert/Care/Rem.- Treatment PRN
0.9% Sodium Chloride 500 ml [Nss] 500 ml IV BOLUS
HYDROmorphone [Dilaudid] 0.5 mg IV NOW STA
03/20/24 10:42
Complete Blood Count/With Diff Urgent
03/20/24 11:18
Comprehensive Metabolic Panel Urgent
Creatine Phosphokinase Urgent
Lipase Urgent
03/20/24 11:24
Urinalysis Reflex To Culture Urgent
Date Specimen was Collected: 03/20/24
Time Specimen was Collected: 10:37
Urine Microscopic Reflex Cult Urgent
03/20/24 12:40
Acetaminophen 1000MG/100Ml [Ofirmev] 1,000 mg in 100 ml IV ONCE
Acetaminophen IV Indication:: ED Narcotic Naive Pt-ONCE
Abnormal Lab Results
03/20/24 03/20/24 03/20/24
10:42 11:18 11:24
WBC 19.8 H 10^3/uL
(4.8-10.8)
RDW 16.0 H %
(11.5-14.5)
Abs Immat Gran (auto) 0.2 H 10^3/uL
(0-0.05)
Absolute Neuts (auto) 16.2 H 10^3/uL
(1.4-6.5)
Absolute Monos (auto) 1.7 H 10^3/uL
(0.1-0.6)
Immature Gran % 0.9 H %
(0-0.5)
Neutrophils % 81.8 H %
(42.2-75.2)
Lymphocytes % 8.5 L %
(20.5-51.1)
Chloride 111 H mmol/L
(98-107)
Carbon Dioxide 16 L mmol/L
(22-30)
BUN 47 H mg/dl
(9-20)
Creatinine 2.6 H mg/dL
(0.7-1.3)
Glucose 145 H mg/dl
(70-99)
Ur Occult Blood Reflex 1+ A
(Negative)
Urine RBC 3-6 A /HPF
(0-2)
Urine Albumin (Reflex) 3+ A
(Neg - Trace)
03/20/24 10:42
03/20/24 11:18
Vital Signs
Initial and Last Documented VS:
Initial Vital Signs
Temp Pulse Resp BP
98.1 F 71 18 187/99
03/20/24 10:27 03/20/24 10:27 03/20/24 10:27 03/20/24 10:27
Last Documented Vital Signs
Temp Pulse Resp BP Pulse Ox
98.2 F 79 10 166/81 97
03/20/24 12:00 03/20/24 13:00 03/20/24 13:00 03/20/24 13:00 03/20/24 13:00
MDM/Problems Addressed
Differential Diagnosis Includes:
Clear swelling to the right abdominal wall. Appears to be rectus swelling. Doubt abscess as there is no warmth or erythema. Possible hematoma. There was a keratotic area that was frozen recently however not convinced this is related. Workup in
progress includes labs CT scan pain management. Plain CT with a history of renal disease.
*Radiology
Radiology exam reviewed: radiology read reviewed (Probable large rectus abdominal wall hematoma)
*Pulse Oximetry
Patient hypoxic: no
*Critical Care Note
Total Time (30-74mins, 75-104mins- exclusive of procedures): Not Applicable
Update Note
Update Note:
Clinically and CT both support a rectus muscle issue. Likely all hematoma. The have a leukocytosis although likely reactionary. Nothing clinically to support an infectious issue. However patient will be admitted for observation of the hematoma
along with pain management.
ED Attending Note
-
Portions of this chart may have been created with voice recognition software.� Occasional wrong word or��sound alike� substitutions may have occurred due to the inherent limitations of voice recognition software.
Discharge Plan
Departure
Patient Disposition: Admit
Date of Disposition: 03/20/24
Time of Disposition: 12:41
Presentation/result/management discussed w/ accepting MD/DO: Hospitalist
Discharge Problem:
Large abdominal wall hematoma, Intractable pain, Leukocytosis
Prescriptions:
No Action
pantoprazole 40 MG tablet,delayed release (DR/EC)
40 mg PO DAILY
duloxetine 20 MG capsule,delayed release(DR/EC)
20 mg PO DAILY
fluticasone propion-salmeterol [Advair Diskus] 250-50 mcg/dose blister with device
1 inh INHALATION R BIDPRN PRN (Reason: sob)
alprazolam 0.5 mg Tablet
0.5 mg PO Q8H
Patient Comments:
patient filled on 02/18/25 #90
Eliquis 2.5 mg Tablet
2.5 mg PO BID
atorvastatin 20 mg Tablet
20 mg PO DAILY
cefuroxime axetil 250 mg Tablet
250 mg PO BID
Patient Comments:
patient to take for 10 days starting 03/16/2024
prednisone 20 mg Tablet
20 mg PO DAILY
Patient Comments:
for 10 days starting 03/16/2024
amlodipine [Norvasc] 10 mg Tablet
10 mg PO DAILY
levalbuterol tartrate [Xopenex HFA] 45 mcg/actuation Hfa Aerosol Inhaler
2 inh INHALATION R Q6HPRN PRN (Reason: sob)
oxycodone-acetaminophen [Endocet] 5-325 mg tablet
1 tab PO Q6HPRN PRN (Reason: severe pain)
Patient Comments:
03/20/24-last filled 02/02/24, 120 tabs for 30 days from [facility]
Referrals:
Patrick Fernandez MD [Family Provider] -
Interventions
Interventions:
*Risk Screen - Suicide Last Done: 03/20/24 10:27
*General Assessment Last Done: 03/20/24 10:27
*Neglect/Abuse Screening Last Done: 03/20/24 10:27
ED- Fall Risk Assessment Last Done: 03/20/24 10:31
*ED COVID-19 Vaccine History Last Done: 03/20/24 10:27
XH-Sbyqni-Hjwxqcgnhx Assessment Last Done: 03/20/24 10:31
Discharge Date and Time
Print Language: TANZANIAN
[2024-03-20] MEDS: NSS 500 IV (10:45)
[2024-03-20] MEDS: DILAUDID 0.5 MG IV ×3 (10:45→20:30)
[2024-03-20 10:51] LABS: % Basophils 0.1 % (0-2); % Eosinophils 0.2 % (0-6); % Immature Granulocytes 0.9 % (0-0.5); % Lymphocytes 8.5 % (20.5-51.1); % Monocytes 8.5 % (1.7-9.3); % Neutrophils 81.8 % (42.2-75.2); Absolute Immature Granulocytes 0.2 10^3/uL (0-0.05); Absolute Lymphocytes 1.7 10^3/uL (1.2-3.4); Absolute Monocytes 1.7 10^3/uL (0.1-0.6); Absolute Neutrophils 16.2 10^3/uL (1.4-6.5); Hematocrit 43.8 % (39.0-52.0); Hemoglobin 14.7 g/dL (13.0-18.0); Mean Corp Hgb Conc. 33.6 g/dL (33.0-37.0); Mean Corpuscular Hgb 29.7 pg (27.0-31.0); Mean Corpuscular Volume 88.5 fL (80.0-94.0); Mean Platelet Volume 10.1 fL (7.4-10.4); Nucleated Red Blood Cells % 0 % (-); Platelet Count 353 10^3/uL (130-400); Red Blood Cell Count 4.95 10^6/uL (4.70-6.10); White Blood Cell Count 19.8 10^3/uL (4.8-10.8)
[2024-03-20 11:31] LABS: Urine Albumin 3+ (Neg - Trace); Urine Bilirubin Negative (Negative); Urine Character Clear (Clear); Urine Color Straw; Urine Glucose Negative (Negative); Urine Ketone Negative (Negative); Urine Leukocyte Negative (Negative); Urine Nitrite Negative (Negative); Urine Occult Blood 1+ (Negative); Urine Urobilinogen Negative (Neg - 1+); Urine pH 6.5 (5.0-9.0)
[2024-03-20 11:46] LABS: Urine Mucus Few; Urine White Cell 0-2 /HPF (0-5)
[2024-03-20 11:51] LABS: ALT (SGPT) 21 U/L (0-50); AST (SGOT) 24 U/L (17-59); Albumin 3.9 g/dl (3.5-5.0); Alkaline Phosphatase 105 U/L (38-126); Blood Urea Nitrogen 47 mg/dl (9-20); Calcium 8.5 mg/dl (8.4-10.2); Carbon Dioxide 16 mmol/L (22-30); Chloride 111 mmol/L (98-107); Creatine Phosphokinase 146 U/L (55-170); Estimated Creatinine Clearance 24 ml/min; Glucose 145 mg/dl (70-99); Lipase 110 U/L (23-300); Potassium 4.3 mmol/L (3.5-5.1); Sodium 139 mmol/L (135-145); Total Bilirubin 0.6 mg/dl (0.2-1.3); Total Protein 6.5 g/dl (6.3-8.2); eGFR 26.37
--- NOTE | 2024-03-20 12:51 | PHANOTE ---
med rec note- patient refusing to go home medication until he gets pain medication, explain to patient how important it is that we do have he update meds on file, patient pulled paper out of his sock with four medication on it magnesium, Flomax
10mg bid, Percocet 5mg qid, Norvasc 10mg, Cymbalta 20mg and list of allergies, use ecw and pharmacy since his list was not correct. will see if family on file can help
[2024-03-20] MEDS: OFIRMEV 100 IV (13:06)
--- NOTE | 2024-03-20 18:43 | HPS.HSE ---
Addendum entered and electronically signed by Kenzie Carrasco MD 03/20/24 20:31:
I personally performed a history and physical exam of the patient and discussed management with the resident. I reviewed the resident's note and agree with the documented findings and plan of care HPI/CC.
GENERAL: well developed, well nourished, male in no apparent distress
HEENT: NC/AT
HEART: regular rate and rhythm, +S1, +S2
LUNGS : clear to auscultation bilaterally
ABDOM: soft, nontender, nondistended, + bowel sounds--firm large tender nonpulsatile mass right abdomen just lateral to umbilicus
EXT: no cyanosis, clubbing, or edema
NEUROLOGIC: grossly intact
Abdominal wall pain, right-sided hematoma--likely exacerbated by both coughing and Eliquis--hold for now--serial H&H--likely will tamponade off--consider surgical consult--pain management--dilaudid for now
Leukocytosis--Likely reactive-- infection less likely given no erythema and warmth on exam, no fever, and patient's clinical picture
polycystic kidney disease with hepatic involvement, chronic
Paroxysmal Afib- hold Eliquis for now--does not appear to be on any rate control meds
Chronic kidney disease--stage 4- Cr 2.6 today, which is at baseline--renal dose meds
Essential Hypertension-- continue home meds
Hyperlipidemia-- continue home meds
PUD--PPI
Code status- full code
DVT proph
Original Note:
Family Physician
-
Family Physician: Patrick Fernandez
Chief Complaint
-
Abdominal pain
History of Present Illness
68 y/o male with pmhx of HTN, HLP, Hep C, Polycystic kidney disease, CKD stage 4 presenting to the ED with severe abdominal pain starting since yesterday. Pt notes he has been coughing for the past week and was started on antibiotics and prednisone
by his PCP. Abdominal pain is located on the right side lateral to the midline and is not associated with nausea, vomiting, fever, flank pain, chest pain. Pt denies trauma to that area. Notes has been on Eliquis for Afib for the past 2 months. Takes
percocet for chronic back pain at home. Pt describes severe pain (12/13).
Medical History
Past Medical History
Past Medical History: Reports GERD, HTN, Hypercholesterolemia and Renal Failure
Additional Past Medical History:
Diverticulitis s/p bowel resection, polycystic kidney disease with liver involvement, Hep C
Past Surgical History: Reports Bowel Resection
Additional Past Surgical History:
Bilateral herniorrhaphy
Social History
Tobacco: Smoker
Alcohol: Occasional
Family History
Family History: Not pertinent
Allergies / Home Medications
Allergies reflects when Allergies were last updated in [facility].
Home Medications with original date entered in [facility]
Allergy/Medication List:
Allergies
Allergy/AdvReac Type Severity Reaction Status Date / Time
gabapentin Allergy Hives Verified 03/20/24 10:26
lorazepam [From Ativan] Allergy 'gets Verified 03/20/24 10:26
depressed'
oxycodone [From Percocet] Allergy pt denies Verified 03/20/24 18:51
allergy
Home Medications
pantoprazole 40 mg tablet,delayed release 40 mg PO DAILY Gastrointestinal issue 09/15/08
duloxetine 20 mg capsule,delayed release 20 mg PO DAILY Mental Health/Anxiety 10/21/18
alprazolam 0.5 mg tablet 0.5 mg PO Q8H 09/17/21
fluticasone 250 mcg-salmeterol 50 mcg/dose blistr powdr for inhalation (Advair Diskus) 1 inh inhalation R BIDPRN PRN sob 09/17/21
apixaban 2.5 mg tablet (Eliquis) 2.5 mg PO BID Blood Clot Prevention/Tx 04/07/23
atorvastatin 20 mg tablet 20 mg PO DAILY High Cholesterol 04/07/23
amlodipine 10 mg tablet (Norvasc) 10 mg PO DAILY 03/20/24
cefuroxime axetil 250 mg tablet 250 mg PO BID 03/20/24
levalbuterol tartrate 45 mcg/actuation aerosol inhaler (Xopenex HFA) 2 inh inhalation R Q6HPRN PRN sob 03/20/24
oxycodone-acetaminophen 5 mg-325 mg tablet (Endocet) 1 tab PO Q6HPRN PRN severe pain 03/20/24
prednisone 20 mg tablet 20 mg PO DAILY 03/20/24
Review of Systems
-
History Source: Patient
Constitutional: Reports No Symptoms
EENT: Reports No Symptoms
Respiratory: Reports Cough
Cardiac: Reports No Symptoms
Abdomen/GI: Reports Abdominal Pain
: Reports No Symptoms
Musculoskeletal: Reports No Symptoms
Skin: Reports No Symptoms
Neurological: Reports No Symptoms
Endocrine: Reports No Symptoms
Hematologic/Lymphatic: Reports No Symptoms
Psych: Reports No Symptoms
Physical Exam
Vital Signs
Vital Signs
Temp Pulse Resp BP Pulse Ox
98.9 F 73 20 175/94 97
03/20/24 18:40 03/20/24 18:40 03/20/24 18:40 03/20/24 18:40 03/20/24 18:40
Physical Exam
General: Well Developed and Well Nourished
HEENT: NormoCephalic
Respiratory: Clear
Cardiac: S1/S2 and Regular Rhythm
GI: Soft, Non Tender, Normal Bowel Sounds and Other (There is a bordered swelling of the abdominal wall on the right side just lateral to the midline measuring 10*20 cm. No warmth or redness. Tender on palpation. )
Musculoskeletal: No Clubbing, No Cyanosis and No Edema
Neuro: Awake, Alert and Oriented
Hematologic/Lymphatic: No Lymphadenopathy
Psych: Agitated
Laboratory Results
-
Laboratory Results
Total Bilirubin 0.6 mg/dl (0.2-1.3) 03/20/24 11:18
AST 24 U/L (17-59) 03/20/24 11:18
ALT 21 U/L (0-50) 03/20/24 11:18
Alkaline Phosphatase 105 U/L (38-126) 03/20/24 11:18
Lipase 110 U/L (23-300) 03/20/24 11:18
Impression/Plan
-
IMPRESSION:
68 y/o male with complicated pmhx admitted with:
# Abdominal wall pain, right-sided
- 2/2 to abdominal wall hematoma, likely exacerbated by coughing and Eliquis
- Abd/pelvis CT: Heterogeneous enlargement of the right rectus sheath most likely representing a LARGE RIGHT RECTUS SHEATH HEMATOMA. Extensive bilateral polycystic kidney disease with hepatic involvement.
- Hold Eliquis for now
- Serial H&H, will consider surgery consult with progression in clinical status and/or labs
- Pain management with dilaudid
# Leukocytosis
- Likely reactive
- infection less likely given no erythema and warmth on exam, no fever, and patient's clinical picture
- Will monitor
# polycystic kidney disease with hepatic involvement, chronic
# Afib
- Admit to telemetry
- hold Eliquis for now
# Chronic kidney disease
- Cr 2.6 today, which is at baseline
# Hypertension
- continue home meds
#Hyperlipidemia
- continue home meds
#PUD
- continue home meds
Code status
- full code
DVT prophylaxis
- SCD
[2024-03-20] MEDS: CYMBALTA DELAYED RELEASE 20 MG PO (19:08)
[2024-03-20] MEDS: PROTONIX 40 MG PO (19:08)
[2024-03-20] MEDS: XANAX 0.5 MG PO (19:08)
[2024-03-20] MEDS: NORVASC 10 MG PO (19:08)
[2024-03-20] MEDS: DELTASONE 20 MG PO (19:08)
[2024-03-20] MEDS: LIPITOR 20 MG PO (19:08)
[2024-03-20 20:29] LABS: % Basophils 0.2 % (0-2); % Eosinophils 0.1 % (0-6); % Lymphocytes 4.5 % (20.5-51.1); % Neutrophils 88.2 % (42.2-75.2); Absolute Immature Granulocytes 0.2 10^3/uL (0-0.05); Absolute Lymphocytes 0.9 10^3/uL (1.2-3.4); Absolute Monocytes 1.2 10^3/uL (0.1-0.6); Absolute Neutrophils 17.6 10^3/uL (1.4-6.5); Hematocrit 42.3 % (39.0-52.0); Hemoglobin 14.3 g/dL (13.0-18.0); Mean Corp Hgb Conc. 33.8 g/dL (33.0-37.0); Mean Corpuscular Hgb 29.7 pg (27.0-31.0); Mean Corpuscular Volume 87.8 fL (80.0-94.0); Nucleated Red Blood Cells % 0 % (-); Platelet Count 364 10^3/uL (130-400); Red Blood Cell Count 4.82 10^6/uL (4.70-6.10); Red Cell Dist. Width 15.6 % (11.5-14.5); White Blood Cell Count 19.9 10^3/uL (4.8-10.8)
[2024-03-20] MEDS: CEFTIN 250 MG PO (20:30)
[2024-03-20 20:47] LABS: ALT (SGPT) 20 U/L (0-50); AST (SGOT) 20 U/L (17-59); Albumin 4.1 g/dl (3.5-5.0); Alkaline Phosphatase 115 U/L (38-126); Blood Urea Nitrogen 43 mg/dl (9-20); Calcium 8.9 mg/dl (8.4-10.2); Carbon Dioxide 20 mmol/L (22-30); Chloride 107 mmol/L (98-107); Creatine Phosphokinase 154 U/L (55-170); Estimated Creatinine Clearance 24 ml/min; Glucose 127 mg/dl (70-99); Potassium 4.5 mmol/L (3.5-5.1); Sodium 138 mmol/L (135-145); Total Bilirubin 0.5 mg/dl (0.2-1.3); Total Protein 6.7 g/dl (6.3-8.2); eGFR 27.64
[2024-03-21] VITALS (7 sets, daily range): BP systolic 109–163; BP diastolic 64–100
[2024-03-21] MEDS: DILAUDID 0.5 MG IV ×5 (00:37→14:28)
--- NOTE | 2024-03-21 01:03 | PTCARENOTE ---
Pt received from ER [id number] able to make his needs known, pt not cooperative at times, angry & irritated when trying to do assessment & while asking questions.Refused through skin assessment,denies of any wounds.Pt c/o of 10/10 pain in right upper
quadrant on PRN pain meds as ordered.Plan of care continued.Call ferris in reach.
[2024-03-21] MEDS: XANAX 0.5 MG PO ×3 (04:30→20:59)
[2024-03-21 08:00] LABS: % Basophils 0.1 % (0-2); % Immature Granulocytes 0.9 % (0-0.5); % Lymphocytes 4.6 % (20.5-51.1); % Monocytes 5.3 % (1.7-9.3); % Neutrophils 89.1 % (42.2-75.2); Absolute Immature Granulocytes 0.2 10^3/uL (0-0.05); Absolute Monocytes 1.1 10^3/uL (0.1-0.6); Absolute Neutrophils 18.6 10^3/uL (1.4-6.5); Hematocrit 39.2 % (39.0-52.0); Hemoglobin 13.5 g/dL (13.0-18.0); Mean Corp Hgb Conc. 34.4 g/dL (33.0-37.0); Mean Corpuscular Hgb 29.9 pg (27.0-31.0); Mean Corpuscular Volume 86.7 fL (80.0-94.0); Mean Platelet Volume 9.9 fL (7.4-10.4); Nucleated Red Blood Cells % 0 % (-); Platelet Count 353 10^3/uL (130-400); Red Blood Cell Count 4.52 10^6/uL (4.70-6.10); Red Cell Dist. Width 15.3 % (11.5-14.5); White Blood Cell Count 20.8 10^3/uL (4.8-10.8)
[2024-03-21 08:46] LABS: Blood Urea Nitrogen 41 mg/dl (9-20); Calcium 8.9 mg/dl (8.4-10.2); Carbon Dioxide 18 mmol/L (22-30); Chloride 105 mmol/L (98-107); Estimated Creatinine Clearance 21 ml/min; Glucose 119 mg/dl (70-99); Sodium 135 mmol/L (135-145); eGFR 24.13
[2024-03-21 09:07] LABS: Potassium 4.7 mmol/L (3.5-5.1)
[2024-03-21] MEDS: LIPITOR 20 MG PO (09:34)
[2024-03-21] MEDS: DELTASONE 20 MG PO (09:34)
[2024-03-21] MEDS: PROTONIX 40 MG PO (09:34)
[2024-03-21] MEDS: NORVASC 10 MG PO (09:34)
[2024-03-21] MEDS: CYMBALTA DELAYED RELEASE 20 MG PO (09:35)
[2024-03-21 09:56] LABS: Hemoglobin 13.4 g/dL (13.0-18.0)
--- NOTE | 2024-03-21 10:28 | W.PN.HOSP.TC ---
Addendum entered and electronically signed by Kenzie Carrasco MD 03/21/24 18:24:
I saw and evaluated the patient independently. I reviewed the resident�s note and agree with findings and plan as documented by Dr. Singh.
GENERAL: well developed, well nourished, male in no apparent distress
HEENT: NC/AT
HEART: regular rate and rhythm, +S1, +S2
LUNGS : clear to auscultation bilaterally
ABDOM: soft, nontender, nondistended, + bowel sounds--firm large tender nonpulsatile mass right abdomen just lateral to umbilicus
EXT: no cyanosis, clubbing, or edema
NEUROLOGIC: grossly intact
Abdominal wall pain, right-sided hematoma--likely exacerbated by both coughing and Eliquis--hold for now--serial H&H--likely will tamponade off--consider surgical consult--pain management--dilaudid for now--started oral with hopeful need for limited
IV
Leukocytosis--Likely reactive-- infection less likely given no erythema and warmth on exam, no fever, and patient's clinical picture--CXR neg
polycystic kidney disease with hepatic involvement, chronic
Paroxysmal Afib- hold Eliquis for now--does not appear to be on any rate control meds
Chronic kidney disease--stage 4- Cr 2.6 today, which is at baseline--renal dose meds
Essential Hypertension-- continue home meds
Hyperlipidemia-- continue home meds
PUD--PPI
Code status- full code
DVT proph
anticipate home tomorrow if H&H stable
Original Note:
Today's Communication/Plan
-
Oral dilaudid + tylenol prn
Serial H&H
D/C prednisone
Assessment / Plan
Assessment / Plan
68 y/o male with:
# Abdominal wall fluid collection
- Likely hematoma given exam and CT findings
- Conservative management
- Serial H&H q8h
- Consider surgery consult if symptoms progress
- Pain management, pt asking for more frequent pain meds, will start oral dilaudid 2mg q4hr and give IV if oral pain not relieving pain
- Add tylenol 650mg q6h prn
# Leukocytosis
- Likely reactive and steroid-induced
- Will d/c prednisone given no wheezing on exam
- Monitor labs
# Afib
- Chronic
- Currently in sinus rhythm
- Continue to hold Eliquis
- On telemetry
# Polycystic kidney disease with hepatic involvement, chronic
# Chronic kidney disease
- Cr at baseline
# Hypertension
- continue home meds
#Hyperlipidemia
- continue home meds
#PUD
- continue home meds
Anticipated Discharge: Within 24 hours
Subjective/Interval History
-
Date of Service: March 21, 2024
Objective Data
-
Labs:
Laboratory Results
03/21/24 03/21/24 03/21/24
07:41 09:46 17:30
WBC 20.8 H
Hgb 13.5 13.4 Pending
Hct 39.2 40.0 Pending
Plt Count 353
Sodium 135
Potassium 4.7
Chloride 105
Carbon Dioxide 18 L
BUN 41 H
Creatinine 2.8 H
Glucose 119 H
Calcium 8.9
Vital Signs:
Vital Signs
Temp Pulse Resp BP Pulse Ox
99.1 F 85 20 163/100 100
03/21/24 07:27 03/21/24 09:34 03/21/24 07:27 03/21/24 09:34 03/21/24 07:27
Review of Systems
-
History Source: Patient
EENT: Reports No Symptoms Reported
Respiratory: Reports No Symptoms
Cardiac: Reports No Symptoms
Abdomen/GI: Reports Abdominal Pain
Breast: Reports No Symptoms
Genitourinary: Reports No Symptoms
Musculoskeletal: Reports No Symptoms
Skin: Reports No Symptoms
Neuro: Reports No Symptoms
Endocrine: Reports No Symptoms
Hematologic / Lymphatic: Reports No Symptoms
Allergy / Immunology: Reports No Symptoms
Physical Exam
-
General: Well Developed and Well Nourished
HEENT: Normocephalic
Respiratory: Clear to Auscultation
Cardiac: Regular Rhythm and S1/S2
GI: Soft and Tender (Located at the fluid collection on the right side of the midline)
Genito-urinary: No Costovertebral Tender
Musculoskeletal: No Clubbing, No Cyanosis and No Edema
Neuro: Awake, Alert and Oriented
Hematologic / Lymphatic: No Lymphadenopathy
[2024-03-21] MEDS: CEFTIN 250 MG PO (10:52)
--- NOTE | 2024-03-21 11:52 | CM ---
Pt seen bedside. Initial assessment completed. Admitted for abdominal pain.
Pt reports that he lives w/ his spouse in a single story home- 6 steps to enter the home. Pt states he is independent w/ ambulating. Has grab bars in the bathroom for support, pt states he also has a nebulizer that is in good condition.
Pt denies SNF/VN/PT hx. Pt states he has a social security doctor that comes to his home once a year. Pt denies any current home or OP services.
Address, point of contact and insurance verified
PCP: Dr. Fernandez
Pharmacy: [facility]
Plan: Anticipate home; no needs
[2024-03-21] MEDS: DILAUDID 2 MG PO ×3 (12:52→21:49)
[2024-03-21 20:31] LABS: Hematocrit 36.9 % (39.0-52.0); Hemoglobin 12.6 g/dL (13.0-18.0)
--- NOTE | 2024-03-21 21:30 | W.DCSUMMARY ---
Addendum entered and electronically signed by Kenzie Carrasco MD 03/22/24 17:51:
Read, reviewed, and agree. See same day progress note for additional details. Time spent coordinating care, DC planning, review of DC plan of care with resident, transition of care, review of records in EMR, med rec, consults, notes, d/w
consultants, nursing, family, and CM = 33 minutes.
Throughout his hospitalization, patient was exceedingly rude, called us f people and f institutions and continued to complain that we did not treat him for his pain. I explained multiple times that we were adjusting his pain medications as
needed. He was getting oral Dilaudid 2 mg every 4 hours as needed along with IV Dilaudid for breakthrough severe pain. He sat up in bed on his own accord on the day of discharge yelling that we were treating him like an orphan and not giving him
pain medication. He stated 'what do I have to do to get you people to understand that I need 2 to 3 mg of IV Dilaudid at a time?'. I stated that he was not getting that from me. I stated that he was medically clear for discharge with stable
hemoglobin and improving white blood cell count. He then became irate and pulled the covers over his head which I pulled back so that he and I could still speak. He then yelled 'do not touch me', which I did not. Entire resident team and case
management were there as witnesses. Nursing reported that he would not sign the discharge paperwork. She also reported that he pulled out his own IV and wellness nurse rn and threw them on the floor, then accused me of doing so which I did not. I
have relayed his behavior to his primary care doctor, Patrick Fernandez. Nursing told me that he refused to sign his discharge paperwork. CM assisted with obtaining him a ride.
Original Note:
Discharge Summary
Discharge Data
Date of Admission: 03/20/24
Date of Discharge: 03/22/24
-
Pending Results: No
Hospital Course
Discharging Physician : Dr. Dr. Alcira Ledbetter
Disposition : Home
Principal Discharge diagnosis :
Abdominal wall (rectus sheath) hematoma
Chronic Discharge diagnosis :
Bronchitis
Chronic kidney disease
Polycystic kidney disease with hepatic involvement
Atrial fibrillation
Hyperlipidemia
Hypertension
Chronic obstructive pulmonary disease
Peptic ulcer disease
Hepatitis C infection, chronic
Diverticulitis
Chronic low back pain
Hospital Course :
Pt is a 68 y/o male who presented to the ED complaining of right-sided abdominal pain that started one day before arrival to the ED. On day of ED visit, patient was on steroids and cefuroxime, prescribed for his URI symptoms including cough. Pain
was severe and located on the right side, lateral to the midline without any associated symptoms of fever and nausea/vomiting. Denied any injury or trauma to the area. Pt was on Eliquis for atrial fibrillation since [address] abdomen showed heterogeneous enlargement of the right rectus sheath most likely representing a large right rectus sheath hematoma. Patient was hemodynamically stable and not toxic appearing. Eliquis was held and serial H&H were checked. Labs
showed leukocytosis, likely 2/2 steroids. Patient was initially started on 0.5mg IV hydromorphone, however was requesting a longer acting medication and was switched to oral dilaudid 2mg q4hr and tylenol 650mg as needed. Pt was refusing to take
tylenol and was requesting 2-3 mg of IV dilaudid at once. CXR was negative, antibiotic and prednisone were held. Vitals were stable throughout hospital stay and there were no signs of hematoma expansion. Serial hemoglobins were stable.
Today, patient is medically stable for discharge with oral dilaudid 4mg q4h for 1 day. Patient was advised to f/u with his primary doctor for further refills, and to not take Percocet with oral Dilaudid. In addition, patient was advised not to take
Eliquis until seen by his primary care physician.
Discharge Plan
-
Patient Disposition: Home (Routine Discharge)
Discharge Diagnosis/Procedures: Abdominal wall hematoma, hyperlipidemia, bronchitis, hypertension, polycystic kidney disease with hepatic involvement, chronic obstructive pulmonary disease, atrial fibrillation, peptic ulcer disease, chronic kidney
disease
Condition: Good
Diet: Low Cholesterol and Low Sodium
Activity: No strenuous activity
Driving Restrictions: As prior to admission
Bathing Restrictions: OK to Shower
Referrals:
Patrick Fernandez MD [Family Provider] - in less than 1 week
Additional Discharge Medication Instructions: You are not to take your Percocet with the oral Dilaudid. Dilaudid is much stronger. Follow-up with your family physician if you need further refills. You are also not to take your Eliquis until seen
by your primary care physician
Prescriptions:
New
acetaminophen 325 mg Tablet
650 mg PO Q6HPRN PRN (Reason: mild pain/ fever>100.5F) Qty: 0 0RF
hydromorphone 2 mg Tablet
4 mg PO Q4HPRN PRN (Reason: severe pain) Qty: 14 0RF
Continued
pantoprazole 40 MG tablet,delayed release (DR/EC)
40 mg PO DAILY
duloxetine 20 MG capsule,delayed release(DR/EC)
20 mg PO DAILY
fluticasone propion-salmeterol [Advair Diskus] 250-50 mcg/dose blister with device
1 inh INHALATION R BIDPRN PRN (Reason: sob)
alprazolam 0.5 mg Tablet
0.5 mg PO Q8H
Patient Comments:
patient filled on 02/18/25 #90
atorvastatin 20 mg Tablet
20 mg PO DAILY
amlodipine [Norvasc] 10 mg Tablet
10 mg PO DAILY
levalbuterol tartrate [Xopenex HFA] 45 mcg/actuation Hfa Aerosol Inhaler
2 inh INHALATION R Q6HPRN PRN (Reason: sob)
Held
Eliquis 2.5 mg Tablet
2.5 mg PO BID
Hold Instructions: do not take until seen by your primary MD
Discontinued
cefuroxime axetil 250 mg Tablet
250 mg PO BID
Patient Comments:
patient to take for 10 days starting 03/16/2024
prednisone 20 mg Tablet
20 mg PO DAILY
Patient Comments:
for 10 days starting 03/16/2024
oxycodone-acetaminophen [Endocet] 5-325 mg tablet
1 tab PO Q6HPRN PRN (Reason: severe pain)
Patient Comments:
03/20/24-last filled 02/02/24, 120 tabs for 30 days from [facility]
Discharge Orders:
Discharge Patient (As Directed); Ordered 03/22/24
Ordered By: Kenzie Carrasco
Discharge Date and Time
Discharge Date/Time: 03/22/24 14:00
Print Language: BARBADIAN
[2024-03-22 02:10] LABS: Hematocrit 35.7 % (39.0-52.0); Hemoglobin 12.4 g/dL (13.0-18.0)
[2024-03-22] MEDS: XANAX 0.5 MG PO ×2 (03:01→12:37)
[2024-03-22] MEDS: DILAUDID 2 MG PO ×2 (03:01→08:12)
[2024-03-22 03:33] VITALS: BP 115/68
[2024-03-22] MEDS: DILAUDID 0.5 MG IV (04:10)
[2024-03-22 07:50] VITALS: BP 124/75
[2024-03-22] MEDS: LIPITOR 20 MG PO (08:12)
[2024-03-22] MEDS: NORVASC 10 MG PO (08:12)
[2024-03-22] MEDS: PROTONIX 40 MG PO (08:12)
[2024-03-22] MEDS: CYMBALTA DELAYED RELEASE 20 MG PO (08:12)
[2024-03-22] MEDS: FLUSH (NSS) 1 FLUSH IV (08:13)
--- NOTE | 2024-03-22 08:35 | W.PN.HOSP.TC ---
Today's Communication/Plan
-
Continue pain management
Plan for discharge given medically stable
Assessment / Plan
Assessment / Plan
68 y/o male with:
# Abdominal wall fluid collection
- Likely hematoma given exam and CT findings
- Conservative management
- Serial H&H q8h stable
- Vitals stable
- Pain management, pt reports still having pain despite taking oral and IV Dilaudid. Requesting higher doses of IV dilaudid
- Add tylenol 650mg q6h prn, patient refuses to take
# Leukocytosis
- Likely reactive and steroid-induced
- Will d/c prednisone given no wheezing on exam
- Monitor labs
# Afib
- Chronic
- Currently in sinus rhythm
- Continue to hold Eliquis
- On telemetry
# Polycystic kidney disease with hepatic involvement, chronic
# Chronic kidney disease
- Cr at baseline
# Hypertension
- continue home meds
- Patient not currently hypertensive, likely 2/2 hydromorphone
- Monitor vitals
#Hyperlipidemia
- continue home meds
#PUD
- continue home meds
Anticipated Discharge: Within 24 hours
Subjective/Interval History
-
Date of Service: March 22, 2024
Objective Data
-
Labs:
Laboratory Results
03/22/24 03/22/24 03/22/24
02:02 08:29 09:30
WBC Pending
Hgb 12.4 L Pending Pending
Hct 35.7 L Pending Pending
Plt Count Pending
Sodium Pending
Potassium Pending
Chloride Pending
Carbon Dioxide Pending
BUN Pending
Creatinine Pending
Glucose Pending
Calcium Pending
Vital Signs:
Vital Signs
Temp Pulse Resp BP Pulse Ox
98.8 F 65 18 124/75 99
03/22/24 03:33 03/22/24 08:12 03/22/24 03:33 03/22/24 08:12 03/22/24 08:06
I&O
03/21/24 03/22/24 03/23/24
06:59 06:59 06:59
Intake Total 840 / 840
Output Total 350 / 350
Balance 490 / 490
Review of Systems
-
History Source: Patient
Constitutional: Reports No Symptoms
EENT: Reports No Symptoms Reported
Respiratory: Reports No Symptoms
Cardiac: Reports No Symptoms
Abdomen/GI: Reports Abdominal Pain and Nausea
Breast: Reports No Symptoms
Genitourinary: Reports No Symptoms
Musculoskeletal: Reports No Symptoms
Neuro: Reports No Symptoms
Endocrine: Reports No Symptoms
Hematologic / Lymphatic: Reports No Symptoms
Physical Exam
-
General: Well Developed and Well Nourished
HEENT: Normocephalic
Respiratory: Clear to Auscultation
Cardiac: Regular Rhythm and S1/S2
GI: Soft, Nondistended, Normal Bowel Sounds and Other (Swelling of the abdominal wall on the right side, ecchymosis located in the right sup diaphragmatic area)
Genito-urinary: No Costovertebral Tender
Musculoskeletal: No Clubbing, No Cyanosis and No Edema
Neuro: Awake, Alert and Oriented
Hematologic / Lymphatic: No Lymphadenopathy
[2024-03-22 08:49] LABS: % Basophils 0.1 % (0-2); % Eosinophils 0.1 % (0-6); % Immature Granulocytes 0.7 % (0-0.5); % Lymphocytes 12.7 % (20.5-51.1); % Neutrophils 74.4 % (42.2-75.2); Absolute Immature Granulocytes 0.1 10^3/uL (0-0.05); Absolute Monocytes 1.9 10^3/uL (0.1-0.6); Absolute Neutrophils 11.7 10^3/uL (1.4-6.5); Hematocrit 38.6 % (39.0-52.0); Hemoglobin 12.9 g/dL (13.0-18.0); Mean Corp Hgb Conc. 33.4 g/dL (33.0-37.0); Mean Corpuscular Hgb 29.5 pg (27.0-31.0); Mean Corpuscular Volume 88.1 fL (80.0-94.0); Nucleated Red Blood Cells % 0 % (-); Platelet Count 327 10^3/uL (130-400); Red Blood Cell Count 4.38 10^6/uL (4.70-6.10); Red Cell Dist. Width 15.3 % (11.5-14.5); White Blood Cell Count 15.7 10^3/uL (4.8-10.8)
[2024-03-22 09:19] LABS: Blood Urea Nitrogen 59 mg/dl (9-20); Calcium 8.5 mg/dl (8.4-10.2); Carbon Dioxide 20 mmol/L (22-30); Chloride 103 mmol/L (98-107); Estimated Creatinine Clearance 19 ml/min; Glucose 97 mg/dl (70-99); Potassium 4.7 mmol/L (3.5-5.1); Sodium 134 mmol/L (135-145); eGFR 20.56
--- NOTE | 2024-03-22 11:39 | W.PN.HOSP.TC ---
Today's Communication/Plan
-
discharge
Assessment / Plan
Assessment / Plan
pt is a 68 year old male
Abdominal wall pain, right-sided hematoma--likely exacerbated by both coughing and Eliquis--cont to hold eliquis until seen by your PCP--serial H&H stable--likely will tamponade off----pain management, patient on oral and IV Dilaudid--nursing
reports that he complains of 10 out of 10 pain, then when they going to give him medication he is sleeping--I have explained that we will be increasing his oral medications--he is insistent on getting 2 and 3 mg of IV Dilaudid at a time which I have
explained to him that I will not give--patient is medically stable for discharge with stable hemoglobin and he can follow-up with his primary care physician
Leukocytosis--CXR neg, likely steroid induced----can stop steroids and antibiotics
polycystic kidney disease with hepatic involvement, chronic
Paroxysmal Afib- hold Eliquis for now--does not appear to be on any rate control meds
Chronic kidney disease--stage 4- Cr 2.6 today, which is at baseline--renal dose meds
Essential Hypertension-- continue home meds
Hyperlipidemia-- continue home meds
PUD--PPI
Code status- full code
DVT proph
Anticipated Discharge: Today
Subjective/Interval History
-
Date of Service: March 22, 2024
Patient continues to complain that we do not treat him for his pain. I have explained multiple times that we will be adjusting his pain medications as needed. He is asking for 2 to 3 mg of IV Dilaudid at a time. I have explained to him that that
will not be happening here.
Objective Data
-
Labs:
Laboratory Results
03/22/24 03/22/24 03/22/24
02:02 08:29 16:30
WBC 15.7 H
Hgb 12.4 L 12.9 L Pending
Hct 35.7 L 38.6 L Pending
Plt Count 327
Sodium 134 L
Potassium 4.7
Chloride 103
Carbon Dioxide 20 L
BUN 59 H
Creatinine 3.2 H
Glucose 97
Calcium 8.5
Vital Signs:
max temp for 24 hours
03/21/24
23:54
Temp 99.0 F
Vital Signs
Temp Pulse Resp BP Pulse Ox
97.5 F 65 16 124/75 99
03/22/24 07:50 03/22/24 08:12 03/22/24 07:50 03/22/24 08:12 03/22/24 08:06
I&O
03/21/24 03/22/24 03/23/24
06:59 06:59 06:59
Intake Total 840 / 840
Output Total 350 / 350
Balance 490 / 490
Review of Systems
-
All other systems: Reviewed and negative
Abdomen/GI: Reports Abdominal Pain
Physical Exam
-
General: Well Developed, Well Nourished and No Apparent Distress
HEENT: Normocephalic and Atraumatic
Respiratory: Clear to Auscultation; Negative Wheezes or Rhonchi
Cardiac: Regular Rhythm and S1/S2; Negative Murmur
GI: Soft (large firm well circumscribed mass along right rectus sheath with mild ecchymosis superiorly), Normal Bowel Sounds and Tender
Musculoskeletal: No Clubbing, No Cyanosis and No Edema
Skin: Warm
Neuro: Awake
[2024-03-22 11:47] VITALS: BP 109/70
--- NOTE | 2024-03-22 13:27 | PTCARENOTE ---
Reviewed DC instruction with pt- reviewed low chol/low Na diet/no strenuous activity/follow up with PCP < 1 week/hold Eliquis until seen by PCP. Also reviewed with/pt given printed info on Dilaudid and SE's. Instructed pt not to take Percocet and
Dilaudid as Dilaudid is much stronger. Pt keeping eyes closed during review of information; stated 'I'm not signing anything; I'm tired of getting treated like a [address] Carrasco notified. DC instructions placed in packet and given to
pt.
--- NOTE | 2024-03-22 14:06 | CM ---
Patient seen at bedside. Patient demanding pain medication. Patient was informed by physician that he was for discharge. Patient stated that he did not have any rides home. CM spoke with nursing and after confirmation arranged for [employer]
transportation [employer] in 10 min. CM spoke with information desk and provided name of emergency medical technician/driver and license plate number. Patient refused to sign discharge forms per nursing. CM will continue to follow for discharge planning needs.
Plan; home with follow up at PCP. transportation via [employer]ft.
== END 2024-03-22 14:00 | disposition home or self-care (01) | DRG 605 ==
LOC: 4 EAST ACU 15:19
PROVIDERS: ADMITTING PHYSICIAN Internal Medicine; EMERGENCY PHYSICIAN Emergency Medicine; FAMILY PHYSICIAN Family Medicine
DX: S30.1XXA Contusion of abdominal wall, initial encounter (principal); Q61.3 Polycystic kidney, unspecified; N18.4 Chronic kidney disease, stage 4 (severe); D68.32 Hemorrhagic disorder due to extrinsic circulating anticoagulants; K27.9 Peptic ulcer, site unspecified, unspecified as acute or chronic, without hemorrhage or perforation; F17.200 Nicotine dependence, unspecified, uncomplicated; I48.0 Paroxysmal atrial fibrillation; I12.9 Hypertensive chronic kidney disease with stage 1 through stage 4 chronic kidney disease, or unspecified chronic kidney disease; E78.00 Pure hypercholesterolemia, unspecified; G89.29 Other chronic pain; Z90.49 Acquired absence of other specified parts of digestive tract; Y93.89 Activity, other specified
CPT/HCPCS: 71046; 74176; 80048; 80053; 81003; 81015; 82550; 83690; 85014; 85018; 85025; 96361; 96374; 96375; 99284